=== PATIENT | female | born 1995 | race Caucasian/White ===

== ENCOUNTER 2016-07-19 13:50 | Inpatient (IN) | payer MEDICAID, OTHER ==
[~2016-07-19] VITALS: Ht 167.6 cm; Wt 122.8 kg
[2016-07-19] MEDS ORDERED: KETOROLAC 30 MG INJ IM STA (16:18)
[2016-07-19] MEDS ORDERED: HYDROCODONE/APAP (10/325) TAB PO ONE (16:30)
--- NOTE | 2016-07-19 16:36 | ERD ---
ER Documentation Chief Complaint Date/Time DATE: 07/19/16 TIME: 16:32 Chief Complaint vaginal bleeding with abdominal pain x 3 weeks HPI This is a 21-year-old female presenting to the emergency department for heavy vaginal bleeding and pelvic pain for the past 3 weeks. Patient states she has irregular periods normally however the heavy bleeding has gotten worse. Patient 's last mental period was 06/11/2016 and ended on 06/24/2016. Patient went to see her primary care provider who gave her prescription for Provera which stopped the vaginal bleeding. Once patient stopped the medication the bleeding returned About 1 week later. Patient now having pelvic pain, nonradiating. Rating pain 7/10 and describes pain as cramping and constant. Patient has been taking ibuprofen and kybm-umy-ibmgtpm medications without relief of symptoms. No dysuria. No fevers or chills. No nausea, vomiting or diarrhea. No constipation. ROS All systems reviewed and are negative except as per history of present illness. Allergies Allergies: Coded Allergies: No Known Allergy (Unverified , 07/19/16) PMhx/Soc Medical and Surgical Hx: pt denies Medical Hx, pt denies Surgical Hx Hx Alcohol Use: No Hx Substance Use: No Hx Tobacco Use: No Smoking Status: Unknown if ever smoked Physical Exam Vitals Vital Signs Date Time Temp Pulse Resp B/P Pulse Ox O2 Delivery O2 Flow Rate FiO2 07/19/16 14:09 99.4 88 18 140/75 100 Physical Exam Const: Alert, gft-laj-hauytsvmn Head: Atraumatic Eyes: Normal Conjunctiva ENT: Normal External Ears, Nose and Mouth. Neck: Full range of motion..~ No meningismus. Resp: Clear to auscultation bilaterally. No wheezing, rhonchi or crackles. Cardio: Regular rate and rhythm, no murmurs Abd: Soft, non tender, non distended. Normal bowel sounds Skin: No petechiae or rashes Back: No midline or flank tenderness Ext: No cyanosis, or edema Neur: Awake and alert Psych: Normal Mood and Affect Result Diagram: 07/19/16 1629 07/19/16 1629 Results 24 hrs Laboratory Tests Test 07/19/16 16:29 Activated Partial Thromboplast Time 31.3Sec Anion Gap 19 Basophils # 0.010^3/ul Basophils % 0.3% Blood Morphology Comment Blood Urea Nitrogen 7mg/dl Calcium Level 8.9mg/dl Carbon Dioxide Level 24mmol/L Chloride Level 105mmol/L Creatinine 0.49mg/dl Eosinophils # 0.010^3/ul Eosinophils % 0.3% Glucose Level 91mg/dl Hematocrit 23.4% Hemoglobin 7.2g/dl INR International Normalized Ratio 1.17 Lymphocytes # 2.310^3/ul Lymphocytes % 20.6% Mean Corpuscular Hemoglobin 19.3pg Mean Corpuscular Hemoglobin Concent 30.8g/dl Mean Corpuscular Volume 62.7fl Mean Platelet Volume 8.0fl Monocytes # 0.610^3/ul Monocytes % 5.5% Neutrophils # 8.310^3/ul Neutrophils % 73.3% Nucleated Red Blood Cells # 0.010^3/ul Nucleated Red Blood Cells % 0.0/100WBC Ovalocytes 2+ Platelet Count 15349^3/UL Potassium Level 3.9mmol/L Prothrombin Time 15.0Sec Prothrombin Time Ratio 1.2 Red Blood Count 3.7310^6/ul Red Cell Distribution Width 17.9% Sodium Level 144mmol/L White Blood Count 11.410^3/ul Current Medications Medications (Trade) Dose Ordered Sig/Tasha Route PRN Reason Start Time Stop Time Status Last Admin Dose Admin Ketorolac Tromethamine (Toradol) 30 mg ONCE STAT IM 07/19/16 16:18 07/19/16 16:19 DC 07/19/16 16:37 Acetaminophen/ Hydrocodone Bitart 1 tab 1 tab ONCE ONCE PO 07/19/16 16:30 07/19/16 16:31 DC 07/19/16 16:37 Sodium Chloride 1,000 ml @ 1,000 mls/hr Q1H ONCE IV 07/19/16 18:00 07/19/16 18:59 DC Sodium Chloride 500 ml @ 500 mls/hr Q1H STAT IV 07/19/16 17:47 07/19/16 18:46 DC Sodium Chloride (NS) 250 ml @ 0 mls/hr Q0M ONCE IV 07/19/16 18:59 07/19/16 19:02 DC Procedures/MDM ED COURSE: The patient was stable throughout ED course. I kept the patient and/or family informed of laboratory and diagnostic imaging results throughout the ED course. Toradol and Monette were given while in the ED. Laboratory CBC white blood cell 11.4 Hgb 7.2, hematocrit 23.4 BMP Imaging Pelvic ultrasound Patient: VICTOR HUGO ROBERTS : 1995 Age: 21 Sex: F [id number] DOS: 07/19/16 1618 Ordering MD: DAPHNIE QUIROZ NP Location: E Room/Bed: PROCEDURE: US Pelvis. CLINICAL INDICATION: Heavy menses for 3 weeks TECHNIQUE: Multiple sonographic images of the pelvis were obtained utilizing a transabdominal and endovaginal technique. The images were reviewed on a PACS workstation. COMPARISON: fluid in the cul-de-sac. FINDINGS: The uterus is visualized and measures 8.8 x 4.1 x 5.1 cm in size. The endometrial echo complex is heterogeneous and thickened measuring 1.5 cm in thickness and measures There is no evidence for free fluid. The right ovary has a normal echotexture and measures 4.1 x 1.8 x 2.5 cm in size. The left ovary has a normal echotexture and measures 3.8 x 2.2 x 2.1 cm in size . Normal ovarian blood flow bilaterally. No adnexal masses are noted. Trace free fluid adjacent to the right ovary likely representing ruptured ovarian follicle or physiologic in nature. No free IMPRESSION: Endometrial thickening and slight irregularity otherwise normal pelvic ultrasound. MDM: 21-year-old female presents emergency department for menorrhagia. Labs and pelvic US ordered. Patient given toradol and norco for pain. Hemoglobin 7.2. Pelvic US reviewed by radiologist as endometrial thickening and slight irregularity otherwise normal pelvic ultrasound. Discussed findings with Dr. Leonard and patient will be admitted for blood transfusion and additional management. Patient remains stable. Denies nausea, vomiting, diarrhea, abdominal pain, dizziness, syncope, chest pain or palpitations. Diagnosis is anemia secondary to menorrhagia Departure Diagnosis: Primary Impression: Anemia Anemia type: unspecified type Qualified Code: D64.9 - Anemia, unspecified type Additional Impression: Menorrhagia Menorrahagia type: with irregular cycle Qualified Code: N92.1 - Menorrhagia with irregular cycle Condition: Fair DAPHNIE QUIROZ NP Jul 19, 2016 16:36
[2016-07-19 16:57] LABS: BASOPHILS % 0.3 % (0.0-2.0); EOSINOPHILS % 0.3 % (0.0-7.0); HEMATOCRIT 23.4 % (37.0-47.0); HEMOGLOBIN 7.2 g/dl (12.0-16.0); LYMPHOCYTES # 2.3 10^3/ul (0.8-2.9); LYMPHOCYTES % 20.6 % (15.0-51.0); MEAN CORPUSCULAR HEMOGLOBIN 19.3 pg (29.0-33.0); MEAN CORPUSCULAR HGB CONC 30.8 g/dl (32.0-37.0); MEAN CORPUSCULAR VOLUME 62.7 fl (82.0-101.0); MONOCYTE # 0.6 10^3/ul (0.3-0.9); MONOCYTES % 5.5 % (0.0-11.0); NEUTROPHIL # 8.3 10^3/ul (1.6-7.5); NEUTROPHILS % 73.3 % (39.0-77.0); PLATELET COUNT 399 10^3/UL (140-440); RED BLOOD COUNT 3.73 10^6/ul (4.20-5.40); RED CELL DISTRIBUTION WIDTH 17.9 % (11.5-14.5); UNCORRECTED WBC 11.4 10^3/ul (4.8-10.8); WHITE BLOOD COUNT 11.4 10^3/ul (4.8-10.8)
[2016-07-19 16:59] LABS: CONDITION 1; LH ANALYZER COMMENTS 1
[2016-07-19 17:03] LABS: POTASSIUM 3.9 mmol/L (3.5-5.1)
[2016-07-19 17:06] LABS: CREATININE 0.49 mg/dl (0.44-1.00)
[2016-07-19 17:07] LABS: CALCIUM 8.9 mg/dl (8.4-10.2)
[2016-07-19] MEDS ORDERED: SOD CHLORIDE 0.9% 500 ML IV STA (17:47)
[2016-07-19 17:49] LABS: OVALOCYTES 2+
[2016-07-19 18:00] LABS: INR 1.17; PT RATIO 1.2
[2016-07-19] MEDS ORDERED: SOD CHLORIDE 0.9% 1,000 ML IV ONE (18:00)
[2016-07-19 18:01] LABS: PARTIAL THROMBOPLASTIN TIME 31.3 Sec (25.0-35.0)
--- NOTE | 2016-07-19 18:33 | RADRPT ---
PROCEDURE: US Pelvis. CLINICAL INDICATION: Heavy menses for 3 weeks TECHNIQUE: Multiple sonographic images of the pelvis were obtained utilizing a transabdominal and endovaginal technique. The images were reviewed on a PACS workstation. COMPARISON: fluid in the cul-de-sac. FINDINGS: The uterus is visualized and measures 8.8 x 4.1 x 5.1 cm in size. The endometrial echo complex is he terogeneous and thickened measuring 1.5 cm in thickness and measures There is no evidence for free fluid. The right ovary has a normal echotexture and measures 4.1 x 1.8 x 2.5 cm in size. The left o vary has a normal echotexture and measures 3.8 x 2.2 x 2.1 cm in size . Normal ovarian blood flow bi laterally. No adnexal masses are noted. Trace free fluid adjacent to the right ovary likely represen ting ruptured ovarian follicle or physiologic in nature. No free IMPRESSION: Endometrial thickening and slight irregularity otherwise normal pelvic ultrasound. RPTAT:AAJJ Physician Dee Date Time Electronically viewed and signed by Physician Dee on 07/19/2016 18:33 MU/
[2016-07-19] MEDS ORDERED: SOD CHLORIDE 0.9% 250 ML IV ONE (18:59)
[2016-07-19 19:33] LABS: ADD UMIC YES; URINE BILIRUBIN (Dip) NEGATIVE (NEGATIVE); URINE BLOOD (Dip) 3+ (NEGATIVE); URINE COLOR RED (YELLOW); URINE GLUCOSE (Dip) NEGATIVE (NEGATIVE); URINE KETONES (Dip) TRACE (NEGATIVE); URINE LEUKOCYTE ESTERASE (Dip) 2+ (NEGATIVE); URINE NITRITE (Dip) POSITIVE (NEGATIVE); URINE TOTAL PROTEIN (Dip) 4+ (NEGATIVE); URINE UROBILINOGEN (Dip) 2.0 E.U./dL (0.1-1.0)
[2016-07-19 20:02] LABS: BACTERIA,URINE FEW; SQUAMOUS EPITHELIAL CELL,UR FEW; URINE RBCS >200 /HPF (0)
[2016-07-19 20:35] VITALS: TEMP 98.2
[2016-07-19] MEDS ORDERED: ACETAMINOPHEN 325 MG TAB PO PRN ×2 (21:30→23:30)
[2016-07-19] MEDS ORDERED: ONDANSETRON 4 MG INJ IV PRN ×2 (21:30→23:30)
[2016-07-19 22:03] VITALS: BP 118/55; RESP 18
[2016-07-19 22:15] VITALS: Ht 167.6 cm; Wt 122.8 kg
--- NOTE | 2016-07-19 22:38 | EN ---
Date/Time of Note Date/Time of Note DATE: 07/19/16 TIME: 22:33 ER Progress Note 21-year-old female who is made aware to me by physician's podiatric assistant when a low hemoglobin level was found.. Performed an independent examination the patient deathly has symptomatic with anemia in appearance. ~17.2 hemoglobin after 3 weeks of vaginal bleeding. Previous hematoma level was low at 10.7. Administered 500 mL of IV fluid and ordered a stat blood transfusion splint the risks of this to the patient. I placed on a cardiac rn. I spoke with the pattern and chain maker, Dr. Ribera, and made her aware of the patient in the vaginal bleeding. Patient has no signs of acute hemorrhage now as the bleeding has stopped somewhat. The transfusion was begun in the emergency room. Assess the patient after starting the transfusion the patient seemed have no reaction. Is currently pain-free and only has symptoms of extreme tiredness and weakness. monitor technician interpretation: Normal sinus rhythm without arrhythmia Rectal care time 34 minutes: This includes treatment of severe anemia secondary to acute blood loss, administration of blood products, multiple visits the patient's bedside to reassess status, chart review, discussion with gynecological specialist, discussion with admitting doctor. This does not include unable procedures Diagnosis: Symptomatic anemia, acute blood loss anemia, severe anemia, abnormal vaginal bleeding. MARVIN CASAS DO Jul 19, 2016 22:38
[2016-07-20] VITALS (7 sets, daily range): BP systolic 104–120; BP diastolic 53–61; PULSE 80–84; RESP 18–20
--- NOTE | 2016-07-20 05:29 | HP ---
Date/Time of Note Date/Time of Note DATE: 07/20/16 TIME: 05:23 Assessment/Plan VTE Prophylaxis VTE Prophylaxis Intervention: SCD's Lines/Catheters IV C[facility]ter Type [facility]from [facility]): Peripheral IV Urinary Cath still in place: No Assessment/Plan Assessment/Plan IMPRESSION 1. Vaginal Bleeding: with Pelvic u/s showing Endometrial thickening and slight irregularity otherwise normal pelvic ultrasound 2. Severe microcytic Anemia 2/2 above 3. Mild Leukocytosis Plan Cont blood transfusion check Iron profile and ferritin Pelvic u/s as noted above Dr. Jenkins was consulted by ER physician and pt is awaiting eval HPI/ROS Admit Date/Time Admit Date/Time Jul 19, 2016 at 21:13 Hx of Present Illness This is a 21-year-old female presenting to the emergency department for heavy vaginal bleeding and pelvic pain for the past 3 weeks. Patient states she has irregular periods normally however the heavy bleeding has gotten worse. Patient 's last mental period was 06/11/2016 and ended on 06/24/2016. Patient went to see her primary care provider who gave her prescription for Provera which stopped the vaginal bleeding. Once patient stopped the medication the bleeding returned About 1 week later. Patient now having pelvic pain, nonradiating. Rating pain 7/10 and describes pain as cramping and constant. Patient has been taking ibuprofen and yhus-mwq-lneayzz medications without relief of symptoms. No dysuria. No fevers or chills. No nausea, vomiting or diarrhea. No constipation. ER Course: Hgb was found to be 7.2 with low MCV. Pelvic u/s showed Endometrial thickening and slight irregularity otherwise normal pelvic ultrasound. Blood transfusion was started. Dr. Jenkins was consulted by ER physician. . PMH/Family/Social Past Medical History Medical History: no pertinent history Past Surgical History Past Surgical Hx: no surgical history Social History Alcohol Use: none Smoking Status: Never smoker Drug Use: none Exam/Review of Systems Vital Signs Vitals Vital Signs Date Time Temp Pulse Resp B/P Pulse Ox O2 Delivery O2 Flow Rate FiO2 07/20/16 04:00 98.3 82 19 117/59 99 Room Air Intake and Output 07/19/16 07/19/16 07/20/16 15:00 23:00 07:00 Intake Total 125 ml Balance 125 ml Exam Constitutional: alert, oriented, well developed Head: atraumatic, normocephalic Eyes: EOMI, PERRL Neck: non-tender, supple Respiratory: clear to auscultation, normal air movement Cardiovascular: nl pulses, regular rate and rhythm Gastrointestinal: non-tender, soft Extremities: normal pulses Labs Result Diagram: 07/19/16 1629 07/19/16 1629 Medications Medications Current Medications Morphine Sulfate (morphine) 2 mg Q4H PRN IV PAIN; Start 07/19/16 at 23:30 Acetaminophen (Tylenol Tab) 650 mg Q6H PRN PO PAIN AND OR ELEVATED TEMP; Start 07/19/16 at 23:30 Famotidine (Pepcid Iv) 20 mg BID IV ; Start 07/20/16 at 09:00 Ondansetron HCl (Zofran Inj) 4 mg Q6H PRN IV NAUSEA AND/OR VOMITING; Start at 23:30 ESTHELA DICKENS MD Jul 20, 2016 05:29
--- NOTE | 2016-07-20 07:02 | CONS ---
DATE OF ADMISSION: 07/19/2016 DATE OF CONSULTATION: 07/20/2016 GYNECOLOGIC CONSULTATION HISTORY OF PRESENT ILLNESS: The patient is a 21-year-old 0 admitted with heavy bleeding, which has been continuous for the last month and symptomatic anemia with a hemoglobin of 7.2. She was admitted for a blood transfusion due to her dizziness and other symptoms. The patient has a long history of irregular periods. She got her period at age 13. She said they were regular for the first few years and then around age 16 they started to become irregular and then she had a year without a period. She has been with her for 5 years and they have never used control as they wished to start a family. The second year of them being together, she had no period. Then the next couple of years, she had irregular periods that were every 3 months apart. The last year she has had bleeding continuously. She described it has having a period of heavier bleeding and then instructional paraprofessional bleeding in between. The patient was given control pills which she took only for 1 month, and she said that did not really work. She then went to see a doctor at a clinic on [facility] in May and was given Provera for 10 days. She said it slowed the bleeding, and then when she stopped the progesterone, she had a very heavy period. Then after the heavy part, she went to [facility] again. She reports that the second round of Provera didn't wqork at all. She became very symptomatic and came to the hospital for care. PAST MEDICAL HISTORY: She has no other medical problems. PAST SURGICAL HISTORY: No prior surgeries. ALLERGIES: NO KNOWN DRUG ALLERGIES. PHYSICAL EXAMINATION: VITAL SIGNS: The first blood pressure in the emergency room was 140/75. The last one was 118/55. Temperature 99.1, pulse ox 100% on room air. LABORATORY DATA: White blood count 11.4, hemoglobin 7.2, hematocrit 23.4, and platelet count 399. Chemistry panel was normal. Coags are PT 15, PTT 31. Urine a little bit unclear as there is blood which is obviously going to be there and protein which is going to be there when there is blood. Positive nitrites. Ultrasound report shows a normal size uterus 8.8 x 4.1 x 5.1, endometrial complex 1.5 cm in thickness. Both ovaries were seen and were normal. ASSESSMENT: Probable polycystic ovarian syndrome, current very heavy periods, and severe anemia. PLAN: Blood transfusion per hospitalist, and plan for a D and C tomorrow; one, to get the patient to stop bleeding so we are not giving her blood and having it come out the bottom and 2 to evaluate the uterus after 5+ years of very irregular periods and now with heavy bleeding. Then would recommend metformin as the patient has been trying to get for the last 5 years. Recommend metformin to regulate her cycle and to assist with getting due to the polycystic ovarian syndrome diagnosis. Would recommend waiting 3 months before attempting after D and C. Dictated By: KIMANI WATSON/EMILY Conf#: [id number] DID#: [id number] MTDD
[2016-07-20 07:21] LABS: BASOPHILS % 0.4 % (0.0-2.0); EOSINOPHILS % 0.4 % (0.0-7.0); HEMATOCRIT 26.7 % (37.0-47.0); HEMOGLOBIN 8.7 g/dl (12.0-16.0); LYMPHOCYTES # 2.1 10^3/ul (0.8-2.9); LYMPHOCYTES % 21.3 % (15.0-51.0); MEAN CORPUSCULAR HEMOGLOBIN 22.1 pg (29.0-33.0); MEAN CORPUSCULAR HGB CONC 32.5 g/dl (32.0-37.0); MEAN CORPUSCULAR VOLUME 67.9 fl (82.0-101.0); MEAN PLATELET VOLUME 8.1 fl (7.4-10.4); MONOCYTE # 0.7 10^3/ul (0.3-0.9); MONOCYTES % 6.6 % (0.0-11.0); NEUTROPHIL # 7.2 10^3/ul (1.6-7.5); NEUTROPHILS % 71.3 % (39.0-77.0); PLATELET COUNT 325 10^3/UL (140-440); RED BLOOD COUNT 3.93 10^6/ul (4.20-5.40); RED CELL DISTRIBUTION WIDTH 21.5 % (11.5-14.5); UNCORRECTED WBC 10.1 10^3/ul (4.8-10.8); WHITE BLOOD COUNT 10.1 10^3/ul (4.8-10.8)
[2016-07-20 07:32] LABS: ALBUMIN 3.5 g/dl (3.3-4.9); POTASSIUM 3.8 mmol/L (3.5-5.1)
[2016-07-20 07:34] LABS: CREATININE 0.59 mg/dl (0.44-1.00)
[2016-07-20 07:35] LABS: ALBUMIN/GLOBULIN RATIO 1.02; BILIRUBIN,INDIRECT 1.5 mg/dl (0-1.1); BILIRUBIN,TOTAL 1.5 mg/dl (0.2-1.3); TOTAL PROTEIN 6.9 g/dl (6.1-8.1)
[2016-07-20 07:36] LABS: CALCIUM 8.5 mg/dl (8.4-10.2)
[2016-07-20 07:38] LABS: CONDITION 1; LH ANALYZER COMMENTS 1
[2016-07-20] MEDS: FAMOTIDINE 20 MG INJ IV SCH ×2 (08:20→21:46)
[2016-07-20] MEDS: morphine 2 MG INJ IV PRN ×2 (09:22→15:59)
--- NOTE | 2016-07-20 13:17 | QN ---
Documentation Comment chronic menorhagia currently with minimal bleeding a/p discussed with pt that not OR time is available currently options discussed and pt desires to remain npo for a few more hours to see if time becomes available. NAZARIO WALLACE MD Jul 20, 2016 13:17
[2016-07-20] MEDS: LACTATED RINGER'S 1,000 ML IV SCH ×2 (13:41→21:46)
[2016-07-20] MEDS: metFORMIN 500 MG TAB PO SCH (17:40)
[2016-07-20] MEDS ORDERED: DEXTROSE 50% 50 ML SYRINGE IV PRN ×2 (18:00)
[2016-07-20] MEDS ORDERED: GLUCOSE GEL 15 GRAM TUBE BUCCAL PRN (18:00)
[2016-07-20] MEDS ORDERED: GLUCAGON 1 MG INJ IM PRN (18:00)
[2016-07-20] MEDS ORDERED: GLUCOSE GEL 15 GRAM TUBE PO PRN ×2 (18:00)
[2016-07-21] VITALS (21 sets, daily range): BP systolic 102–155; BP diastolic 52–79; PULSE 56–79; RESP 15–27
[2016-07-21] MEDS: LACTATED RINGER'S 1,000 ML IV SCH ×3 (05:30→20:58)
[2016-07-21] MEDS: morphine 2 MG INJ IV PRN ×2 (07:15→12:01)
[2016-07-21] MEDS: metFORMIN 500 MG TAB PO SCH ×2 (07:50→19:16)
[2016-07-21] MEDS: FAMOTIDINE 20 MG INJ IV SCH ×2 (08:53→20:07)
[2016-07-21 09:41] LABS: POTASSIUM 4.1 mmol/L (3.5-5.1)
[2016-07-21 09:42] LABS: EOSINOPHILS # 0.1 10^3/ul (0.0-0.5); HEMATOCRIT 28.4 % (37.0-47.0); HEMOGLOBIN 9.1 g/dl (12.0-16.0); LYMPHOCYTES % 16.8 % (15.0-51.0); MEAN CORPUSCULAR HEMOGLOBIN 21.6 pg (29.0-33.0); MEAN CORPUSCULAR HGB CONC 31.9 g/dl (32.0-37.0); MEAN CORPUSCULAR VOLUME 67.6 fl (82.0-101.0); MEAN PLATELET VOLUME 7.9 fl (7.4-10.4); MONOCYTE # 0.5 10^3/ul (0.3-0.9); NEUTROPHIL # 9.5 10^3/ul (1.6-7.5); NEUTROPHILS % 78.2 % (39.0-77.0); PLATELET COUNT 373 10^3/UL (140-440); RED BLOOD COUNT 4.21 10^6/ul (4.20-5.40); RED CELL DISTRIBUTION WIDTH 21.9 % (11.5-14.5); UNCORRECTED WBC 12.1 10^3/ul (4.8-10.8); WHITE BLOOD COUNT 12.1 10^3/ul (4.8-10.8)
[2016-07-21 09:43] LABS: CREATININE 0.5 mg/dl (0.44-1.00)
[2016-07-21 09:44] LABS: CALCIUM 8.8 mg/dl (8.4-10.2); PHOSPHORUS 4.2 mg/dl (2.5-4.9)
[2016-07-21 09:45] LABS: MAGNESIUM 1.8 mg/dl (1.7-2.5)
[2016-07-21 10:10] LABS: CONDITION 1; LH ANALYZER COMMENTS 1
[2016-07-21 10:54] LABS: CHOL/HDL RATIO 4.5 RATIO
--- NOTE | 2016-07-21 11:22 | PN ---
DATE: 07/21/2016 SUBJECTIVE DATA: The patient complains of vaginal bleeding and lower abdominal pain. Denies any chest pain or dyspnea. OBJECTIVE DATA: VITAL SIGNS: Temperature 98.2, pulse rate 54, respiratory rate 18, blood pressure 105/52, oxygen saturation 95% on room air. GENERAL: This is a morbidly obese female lying in bed in no apparent distress. HEENT: Head normocephalic and atraumatic. Eyes: Anicteric sclerae. Conjunctivae clear. ENT: Nasal septum is midline. Oral mucosa is dry. NECK: Short and obese. RESPIRATORY: Bilaterally clear to auscultation. No adventitious breath sounds heard. No use of accessory muscles of respiration. CARDIAC: Regular rate and rhythm. No murmurs. ABDOMEN: Soft. Minimal suprapubic tenderness. Bowel sounds hypoactive in all 4 quadrants. GENITOURINARY: Deferred. EXTREMITIES: No cyanosis, no clubbing, no edema. Peripheral pulses palpable. NEUROLOGIC: The patient is awake, alert and oriented. Cranial nerves are grossly intact. LABORATORY AND DIAGNOSTIC DATA: WBC 12.1, hemoglobin 9.1, hematocrit 28.4, platelet count is 373. Sodium 140, potassium 4.1, chloride 103, CO2 26, anion gap 15, BUN 7, creatinine 0.50, glucose 95, calcium 8.8, phosphorus 4.0, magnesium 1.8. ASSESSMENT AND PLAN: 1. Menorrhagia. The patient was seen and evaluated by HOTEL GUEST SERVICE AGENT. Plan for D and C. Continue to transfuse as needed. 2. Microcytic, hypochromic anemia secondary to acute blood loss. Transfuse as needed. HOTEL GUEST SERVICE AGENT following the patient. Plan for D and C. 3. Probable polycystic ovarian syndrome. The patient on metformin as per HOTEL GUEST SERVICE AGENT. 4. Morbid obesity. BMI of 43.7 kilograms per meter squared. Weight reduction advised. Will obtain A1c, thyroid panel, and lipid panel on this patient. 5. Positive urinalysis. Urine cultures pending at this time. The patient remains afebrile. 6. Fluid, electrolytes and nutrition. N.p.o. for possible surgical intervention. 7. DVT prophylaxis, bilateral sequential compression devices. 8. Gastrointestinal prophylaxis. Histamine 2 receptor blockers. 9. Plan. Await D and C. Transfuse as needed. The case was discussed with Dr. Mims. WAI MIMS MD AM/EMILY Conf#: [id number] DID#: [id number] MTDD
[2016-07-21 12:00] LABS: IRON 20 ug/dl (35-150)
[2016-07-21 12:09] LABS: TOTAL IRON BINDING CAPACITY 473 ug/dl (241-421)
[2016-07-21 12:42] LABS: THYROID STIMULATING HORMONE 1.53 MIU/L (0.465-4.680)
[2016-07-21] MEDS ORDERED: PROPOFOL 20 ML ONE (13:46)
[2016-07-21] MEDS ORDERED: FENTAnyl 50 MCG/ML VIAL ONE (13:46)
[2016-07-21] MEDS ORDERED: SUCCINYLCHOLINE CHLORIDE 100 MG/5 ML SYG IV ONE (13:46)
[2016-07-21] MEDS ORDERED: LIDOCAINE 2% (SDV) 5 ML INJ ONE (13:46)
[2016-07-21] MEDS ORDERED: MIDAZOLAM 1 MG/ML 2 ML INJ ONE (13:46)
[2016-07-21] MEDS ORDERED: METOCLOPRAMIDE 10 MG INJ ONE (14:51)
[2016-07-21] MEDS ORDERED: ONDANSETRON 4 MG INJ ONE (14:51)
[2016-07-21] MEDS ORDERED: CEFAZOLIN 1 GM INJ ONE (14:51)
[2016-07-21] MEDS ORDERED: MEPERIDINE 25 MG INJ IV PRN (15:00)
[2016-07-21] MEDS ORDERED: oxyCODONE 5 MG TAB PO PRN (15:00)
[2016-07-21] MEDS ORDERED: HYDROmorphONE (0.2 MG/ML) 10ML SYG IV PRN ×2 (15:00)
[2016-07-21] MEDS ORDERED: FENTAnyl 50 MCG/ML VIAL IV PRN (15:00)
[2016-07-21] MEDS ORDERED: hydrALAzine 20 MG INJ IV PRN (15:00)
[2016-07-21] MEDS ORDERED: PROCHLORPERAZINE 10 MG INJ IV PRN (15:00)
[2016-07-21] MEDS ORDERED: METOCLOPRAMIDE 10 MG INJ IV PRN (15:00)
[2016-07-21] MEDS ORDERED: ONDANSETRON 4 MG INJ IV PRN (15:00)
[2016-07-21] MEDS ORDERED: LABETALOL HCL 20MG INJ IV PRN (15:00)
[2016-07-21] MEDS ORDERED: DIPHENHYDRAMINE 50 MG INJ IV PRN (15:00)
[2016-07-21] MEDS ORDERED: KETOROLAC 30 MG INJ ONE (15:03)
[2016-07-21] MEDS ORDERED: ACETAMINOPHEN 1000MG/100ML IV 100 ML ONE (15:03)
[2016-07-21] MEDS ORDERED: SOD FERRIC GLUC COMPLX 125 MG in SOD CHLORIDE 0.9% 100 ML IVPB SCH (16:00)
--- NOTE | 2016-07-21 17:53 | OPR ---
DATE OF OPERATION: 07/21/2016 PREOPERATIVE DIAGNOSIS: 1. Chronic menorrhagia. 2. Anemia. 3. Polycystic ovarian syndrome. POSTOPERATIVE DIAGNOSIS: 1. Chronic menorrhagia. 2. Anemia. 3. Polycystic ovarian syndrome. OPERATION PERFORMED: Dilation and curettage. ANESTHESIA: General. SPECIMENS: Endometrial to endometrial curettings. COMPLICATIONS: None. ESTIMATED BLOOD LOSS: Minimal. INDICATIONS: The patient is a 21-year-old female with history of PCOS presents with chronic history of menorrhagia times many years. Patient presents with anemia symptomatic. The patient was admitt ed, given 2 units of packed red blood cells. Patient has some bleeding and the patient consented fo r dilation and curettage for menorrhagia for both diagnostic and therapeutic reasons. The risks and benefits discussed. The risk of infection, bleeding, damage to organs, plus a blood transfusion. Patient understood the risks and consented to the procedure. DESCRIPTION OF PROCEDURE: The patient was taken to the operating room where general anesthesia was found to be adequate. Patient was then prepped, draped in normal sterile fashion. ID was confirmed . [place] speculum placed in and the cervix grasped with a ring forceps. No dilation needed to be done. A curet was placed into the uterus and endometrial curettings were obtained and sent to patho logy. The patient tolerated the procedure well. Lap and needle counts were correct x2. Patient st able to recovery. Dictated By: NAZARIO WALLACE MD /NTS Conf#: [id number] DID#: [id number]
--- NOTE | 2016-07-21 18:35 | QN ---
Documentation Comment s/p DC may DC home from CAKE DECORATOR standpoint when stable will need FU with DR SOLO in 1-2 weeks NAZARIO WALLACE MD Jul 21, 2016 18:35
[2016-07-22] MEDS: LACTATED RINGER'S 1,000 ML IV SCH ×2 (00:17→10:01)
[2016-07-22 05:58] LABS: BASOPHILS % 0.1 % (0.0-2.0); EOSINOPHILS # 0.2 10^3/ul (0.0-0.5); EOSINOPHILS % 1.8 % (0.0-7.0); HEMATOCRIT 27.3 % (37.0-47.0); HEMOGLOBIN 8.8 g/dl (12.0-16.0); LYMPHOCYTES # 1.6 10^3/ul (0.8-2.9); LYMPHOCYTES % 15.2 % (15.0-51.0); MEAN CORPUSCULAR HEMOGLOBIN 21.9 pg (29.0-33.0); MEAN CORPUSCULAR HGB CONC 32.1 g/dl (32.0-37.0); MEAN CORPUSCULAR VOLUME 68.2 fl (82.0-101.0); MEAN PLATELET VOLUME 8.3 fl (7.4-10.4); MONOCYTE # 0.6 10^3/ul (0.3-0.9); MONOCYTES % 6.1 % (0.0-11.0); NEUTROPHIL # 8.1 10^3/ul (1.6-7.5); NEUTROPHILS % 76.8 % (39.0-77.0); PLATELET COUNT 350 10^3/UL (140-440); RED BLOOD COUNT 4.01 10^6/ul (4.20-5.40); RED CELL DISTRIBUTION WIDTH 22.2 % (11.5-14.5); UNCORRECTED WBC 10.6 10^3/ul (4.8-10.8); WHITE BLOOD COUNT 10.6 10^3/ul (4.8-10.8)
[2016-07-22 06:04] LABS: CONDITION 1; LH ANALYZER COMMENTS 1
[2016-07-22 06:06] LABS: POTASSIUM 4.1 mmol/L (3.5-5.1)
[2016-07-22 06:09] LABS: CREATININE 0.6 mg/dl (0.44-1.00)
[2016-07-22 06:10] LABS: CALCIUM 8.7 mg/dl (8.4-10.2); MAGNESIUM 1.6 mg/dl (1.7-2.5)
[2016-07-22] MEDS: metFORMIN 500 MG TAB PO SCH (08:17)
[2016-07-22] MEDS: FAMOTIDINE 20 MG INJ IV SCH (08:17)
[2016-07-22 08:26] VITALS: BP 116/53; RESP 18
--- NOTE | 2016-07-22 09:22 | PDOCDIS ---
Discharge Instructions DIAGNOSIS Discharge Diagnosis: Menorrhagia. Iron deficiency. CONDITION Patient Condition: Stable HOME CARE INSTRUCTIONS: Diet Instructions: Regular ACTIVITY: Activity Restrictions: Slowly Increase Activity Rest between Activity Avoid heavy lifting Bathing Restrictions: Shower FOLLOW UP/APPOINTMENTS Appointments Murray Jenkins MD Specialty: Obstetrics & Gynecology Office Address: [address] [place] [address] Office OTHER ORDERS: Other Orders: 1. Take medications as per prescription. 2. Regular diet as tolerated. 3. Follow-up with CONTRACT ASSISTANT in 1-2 weeks. 4. Slowly increase activity. Rest in between her activity. Avoid heavy lifting. WAI GIBSON NP Jul 22, 2016 09:21
[2016-07-22] MEDS ORDERED: METF500T PO (09:24)
[2016-07-22] MEDS ORDERED: FER325 PO (09:24)
[2016-07-22] MEDS ORDERED: MAGNESIUM SULFATE 2 GM/50 ML 50 ML IVPB SCH (10:00)
--- NOTE | 2016-07-22 10:37 | DS ---
DATE OF ADMISSION: 07/19/2016 DATE OF DISCHARGE: 07/22/2016 FINAL DIAGNOSES: 1. Menorrhagia, status post D and C. 2. Microcytic, hypochromic anemia. 3. Iron deficiency. 4. Probable polycystic ovarian syndrome. 5. Morbid obesity. 6. Prediabetes. CONSULTATIONS: 1. Dr. Murray Jenkins, [facility]. 2. Dr. Jamil Parra, [facility]. HOSPITAL COURSE: This is a 21-year-old female who denies any significant past medical history other than menorrhagia who presented to the emergency department with heavy vaginal bleeding and pelvic pain for the past 3 weeks. The patient rated the pelvic pain as 7/10. The patient was taking over the counter ibuprofen with no significant relief. In the emergency room, the patient was noticed to have a hemoglobin of 7.2. Pelvic ultrasound showed endometrial thickening and slight irregularity, otherwise normal pelvic ultrasound. Blood transfusion was started in the ER and Dr. Jenkins from [facility] [employer] was consulted by the ER physician. The patient was admitted to inpatient medical/surgical floor. The patient was started on analgesics. Blood transfusion was given as needed. The patient was evaluated by [facility] [employer]ER and [facility] and recommended a D and C on this patient because of significant menorrhagia. The patient underwent D and C on 07/21/2016 with no significant postoperative complications. The patient received a total of 2 units of PRBC transfusion with improvement in the patient's H and H. The patient was also noticed to have iron deficiency. The patient was given IV iron supplements. The patient most probably has underlying polycystic ovarian syndrome based on the patient's presentation, body habitus, etc. The patient has been trying to get for the past 5 years. Hence, the patient was started on metformin therapy as per [facility] [employer] recommendations. On the other hand, the patient was also noticed to have prediabetes as evidenced by a hemoglobin A1c of 6.1. The patient is morbidly obese too. The patient had positive urinalysis upon admission. For unclear reasons no urine cultures were sent on this patient. Nevertheless, the patient remained afebrile during the patient's hospital course. The patient had minimal leukocytosis. This could be reactive. Hence, the patient was not started on any antibiotics. Status post D and C, the patient's vaginal bleeding has been stopped. The patient's pelvic pain was relieved. Hence, the patient was cleared by [facility] [employer] to be discharged home. DISPOSITION AND PLAN: The patient will be discharged home today. The patient was instructed to take medications as per prescription. She was instructed to follow a regular diet as tolerated. She was instructed to follow up with GLOVE CLEANER in 1 to 2 weeks. She was instructed to slowly increase activity and rest in between activity and to avoid heavy lifting. The patient verbalized understanding of her discharge instructions. CONDITION AT DISCHARGE: Stable. DISCHARGE MEDICATIONS: 1. Ferrous sulfate 325 mg p.o. b.i.d. 2. Metformin 500 mg p.o. b.i.d. before breakfast and before dinner. PERTINENT LABORATORIES, DIAGNOSTIC DATA AND PROCEDURES: 1. D and C on 07/21/2016. 2. Pelvic ultrasound. Endometrial thickening and slight irregularity, otherwise normal pelvic ultrasound. 3. Latest CBC: WBC 10.6, hemoglobin 8.8, hematocrit 27.3, platelet count 350. 4. Latest BMP: Sodium 141, potassium 4.1, chloride 104, carbon dioxide 26, anion gap 15, BUN 8, creatinine 0.60, glucose 76, calcium 8.7, phosphorus 4.0, magnesium 1.6. 5. Iron panel: Iron 20, TIBC 473, iron saturation 4, ferritin 8.1. 6. Hemoglobin A1c 6.1. 7. Fasting lipid panel: Triglycerides 84, total cholesterol 122, LDL 78, HDL of 27. 8. Thyroid panel: TSH 1.530, free T4 1.88. At this time, we would like to thank all the consultants for seeing the patient , doing the necessary procedures, and providing clinical recommendations. The case and management of this patient was fully discussed with Dr. Chaves. Approximately 35 minutes was spent on coordinating the discharge on this patient. WAI CHAVES MD, AM/EMILY Conf#: [id number] DID#: [id number] MTDD
== END 2016-07-22 15:40 | disposition home or self-care (01) | DRG 988 ==
LOC: FTE 13:50 → MS1 21:13
PROVIDERS: ADMIT Internal Medicine; ATTEND Internal Medicine
PROC: 30233N1 Transfusion of Nonautologous Red Blood Cells into Peripheral Vein, Percutaneous Approach (ICD-10-PCS; 2016-07-19)
PROC: 0UDB7ZX Extraction of Endometrium, Via Natural or Artificial Opening, Diagnostic (ICD-10-PCS; principal; 2016-07-21 15:00)
DX: D62 Acute posthemorrhagic anemia (principal); Z68.42 Body mass index [BMI] 45.0-49.9, adult; E28.2 Polycystic ovarian syndrome; N93.9 Abnormal uterine and vaginal bleeding, unspecified; D50.8 Other iron deficiency anemias; N92.0 Excessive and frequent menstruation with regular cycle; E66.01 Morbid (severe) obesity due to excess calories; R73.03 Prediabetes
CPT/HCPCS: 36430; 76830; 76856; 80048; 80053; 80061; 81001; 81003; 82728; 83036; 83540; 83735; 84100; 84439; 84443; 84703; 85025; 85610; 85730; 86644; 86850; 86900; 86901; 86920; 87086; 88305; 96372; J0131; J0330; J0690; J1170; J1885; J2250; J2270; J2405; J2765; J2916; J3010; J3475; J7030; J7040; J7120; P9016